=== PATIENT | male | born 1950 | race Caucasian/White ===

== ENCOUNTER 2017-03-03 20:51 | Emergency (ER) | payer OTHER, MEDICAID ==
[~2017-03-03] VITALS: Ht 172.7 cm; Wt 104.0 kg
[~2017-03-03 20:51] MED LIST: ASPI81TA82 PO; ATOR80TA PO; CIPRHC10A RIGHT EAR; DILA8TAB4 PO; ENAL10TA7 PO; FENO50TA PO; ISOS10 PO; METH10TA PO; METO25 PO; ZITH200S PO
[2017-03-03 21:04] VITALS: BP 145/84; PULSE 104; RESP 20; TEMP 98.3; O2SAT 94
[2017-03-03] MEDS ORDERED: ENAL10TA PO (21:41)
[2017-03-03] MEDS ORDERED: FENO50TA PO (21:41)
[2017-03-03] MEDS ORDERED: METH10TA PO (21:41)
[2017-03-03] MEDS ORDERED: DILA8TAB4 PO (21:41)
[2017-03-03] MEDS ORDERED: LIPI80TA PO (21:41)
[2017-03-03] MEDS ORDERED: METO25TA3 PO (21:41)
[2017-03-03] MEDS ORDERED: ISOS10TA PO (21:41)
[2017-03-03] MEDS ORDERED: ASPI81CH CHEW (21:41)
[2017-03-03] MEDS ORDERED: IPRASOL INH (21:41)
--- NOTE | 2017-03-03 21:45 | PD ---
HPI Chief Complaint: Oral / Dental Pain or Problem Time Seen by Provider: 21:30 Travel History International Travel<30 days: No Contact w/Intl Traveler<30days: No Traveled to known affect area: No History of Present Illness HPI 66-year-old male presents emergency department for evaluation of right upper dental pain and facial swelling 3 days. Patient reports the pain is constant, nonradiating, no aggravating or alleviating factors, severity 5 out of 10. Patient denies fever or chills. He has no other medical complaints. PFSH Past Medical History Hx Anticoagulant Therapy: Yes (ASA) Arthritis: Yes (OSTEOPOROSIS) Asthma: No Atrial Fibrillation: Yes Blood Disorders: No Anxiety: Yes Depression: No Heart Rhythm Problems: No Cancer: No Cardiac Catheterization: Yes (LAST IN [address] WOODS) Cardiovascular Problems: Yes (CAD) High Cholesterol: Yes Chest Pain: Yes Congestive Heart Failure: No COPD: Yes Coronary Artery Disease: Yes Diabetes: No Diminished Hearing: No Endocrine: No Gastrointestinal Disorders: Yes GERD: Yes Glaucoma: No Genitourinary: No Hepatitis: No Hiatal Hernia: Yes Hypertension: Yes Immune Disorder: No Implanted Vascular Access Dvce: Yes Kidney Stones: Yes Musculoskeletal: Yes (LOWER BACK FX) Neurologic: No Psychiatric: Yes Reproductive: No Respiratory: Yes (COPD) Immunizations Current: No Myocardial Infarction: No Sleep Apnea: Yes Thyroid Disease: No PNEUMOCCOCAL Vaccine (Year): 1 ?: Not Past Surgical History AICD: No Body Medical Devices: METAL CLAMPS FROM VACECTOMY 1978 Genitourinary Surgery: Yes (VASECTOMY) Joint Replacement: No Neurologic Surgery: No Oral Surgery: Yes (BRONCHOSCOPY) Pacemaker: No Other Surgery: Yes Family History Family Hypercholesterolemia: Yes (FATHER , [place]CLES, GRANDPA ON FATHERS SIDE) Social History Alcohol Use: No Tobacco Use: No Substance Use: No Allergies-Medications (Allergen,Severity, Reaction): Coded Allergies: Benadryl (Verified Allergy, Severe, "skin peels off", 08/21/15) Claritin (Verified Allergy, Severe, "skin peels off", 08/21/15) Codeine (Verified Allergy, Severe, "itch", 08/21/15) Erythromycin (Verified Allergy, Severe, "can't take with blood pressure pills", 08/21/15) Morphine (Verified Allergy, Severe, ITCH, 08/21/15) Penicillin (Verified Allergy, Severe, rash, 08/21/15) Pseudoephedrine (Verified Allergy, Severe, "skin peels off", 08/21/15) Sulfa (Verified Allergy, Severe, "sunburn,skin peels off", 08/21/15) Tylenol (Verified Allergy, Severe, "skin peels off,sunburn", 08/21/15) Uncoded Allergies: narcotics (Adverse Reaction, Severe, PT PREFERS NO NARCOTIC PAIN MEDICATIONS, 02/08/11) Reported Meds & Prescriptions Reported Meds & Active Scripts Active Reported Duoneb (Ipratropium-Albuterol Neb) 0.5-2.5 Mg/3 Ml Neb 1 Nebule INH Q8HR NEB Aspirin 81 Mg Chew 81 Mg CHEW DAILY Enalapril (Enalapril Maleate) 10 Mg Tab 10 Mg PO DAILY Metoprolol Tartrate 25 Mg Tab 25 Mg PO DAILY Tricor (Fenofibrate) 145 Mg Tab 145 Mg PO DAILY Takw with food. Lipitor (Atorvastatin Calcium) 80 Mg Tab 80 Mg PO HS Isosorbide Dinitrate 10 Mg Tab 10 Mg PO BID Methadone (Methadone HCl) 10 Mg Tab 10 Mg PO TID Dilaudid (Hydromorphone HCl) 8 Mg Tab 8 Mg PO Q6H PRN Review of Systems Except as stated in HPI: all other systems reviewed are Neg General / Constitutional: No: Fever Eyes: No: Visual changes HENT: No: Headaches Cardiovascular: No: Chest Pain or Discomfort Respiratory: No: Shortness of Breath Gastrointestinal: No: Abdominal Pain Genitourinary: No: Dysuria Musculoskeletal: No: Pain Skin: No Rash Neurologic: No: Weakness Physical Exam Narrative GENERAL: Well-nourished, well-developed patient. SKIN: Focused skin assessment warm/dry. HEAD: Normocephalic. Tenderness over the right maxillary sinus. EYES: No scleral icterus. No injection or drainage. MOUTH: Ulceration with Erythema and mild swelling to the right upper Buccal fold. NECK: Supple, trachea midline. No JVD or lymphadenopathy. CARDIOVASCULAR: Regular rate and rhythm without murmurs, gallops, or rubs. RESPIRATORY: Breath sounds equal bilaterally. No accessory muscle use. Data Data Last Documented VS Vital Signs Date Time Temp Pulse Resp B/P Pulse Ox O2 Delivery O2 Flow Rate FiO2 03/03/17 21:04 98.3 104 20 145/[address] [facility] Medical Decision Making Medical Screen Exam Complete: Yes Emergency Medical Condition: Yes Differential Diagnosis Dental abscess, aphthous ulcer, dental infection, other Narrative Course 66-year-old male presents emergency department for right upper dental pain 3 days. On exam patient has a 0.5 cm ulcerated area with surrounding erythema and mild swelling of the surrounding gum. He also has tenderness of the right maxillary sinus. Patient will be treated for dental infection/dental abscess. Patient instructed to follow up with his primary care doctor and/or dentist for recheck this week. Return precautions discussed. Patient agrees to plan. Diagnosis Primary Impression: Dental abscess Referrals: Dentist Additional Instructions: Take the antibiotics as prescribed. Make an appointment for follow-up with her dentist this week. Taking her current pain medication as needed for pain. you may add [id number] Motrin 500066 milligrams by mouth every 6-8 hours as needed for pain. Scripts Clindamycin 300 Mg [id number] Mg PO Q6H #40 CAP Ref 0 Prov:Cordelia Barth 03/03/17 Disposition: 01 DISCHARGE HOME Condition: Stable Cordelia Barth Mar 03, 2017 21:45
[2017-03-03] MEDS ORDERED: CLIN1CAP6 PO (21:58)
== END 2017-03-03 22:07 | disposition home or self-care (01) ==
LOC: PHED 20:51 → PHEFT 22:07
DX: K04.7 Periapical abscess without sinus (principal); M81.0 Age-related osteoporosis without current pathological fracture; Z79.82 Long term (current) use of aspirin; I25.10 Atherosclerotic heart disease of native coronary artery without angina pectoris; J44.9 Chronic obstructive pulmonary disease, unspecified
CPT/HCPCS: 99283